=== PATIENT | male | born 1945 | race Caucasian/White ===

== ENCOUNTER → 2018-02-27 | Outpatient (CLI) | payer OTHER ==
[~2018-02-27] MED LIST: BAYER CHEWABLE81 MG PO; LEVOTHYROXIN0.025 MG PO
[2018-02-27 07:57] LABS: CREATININE 1.7 mg/dL (0.6-1.3)
== END ==
LOC: M.LAB 07:29 → M.CT 08:30
PROVIDERS: Surgery Vascular Surgery
DX: I71.4 Abdominal aortic aneurysm, without rupture (principal); J98.11 Atelectasis; K57.30 Diverticulosis of large intestine without perforation or abscess without bleeding; N26.1 Atrophy of kidney (terminal)

== ENCOUNTER → 2019-02-22 | Outpatient (CLI) | payer OTHER | LOC: M.ULTRA 09:00 | DX: I71.4 Abdominal aortic aneurysm, without rupture (principal) ==

== ENCOUNTER → 2020-02-29 | Day surgery (SDC) | payer OTHER ==
[~2020-02-29] MED LIST changes: +ASPIR 8181 M1 PO; +FERROUS SULFAT325 MG PO; +FUROSEMIDE 40 M40 MG PO; +KLOR-CON M2020 MEQ PO; -LEVOTHYROXIN0.025 MG PO; +LEVOXYL50 MCG PO; +LIPITOR 20 MG T20 M1 PO; +NORCO 10-325 T1 EACH PO; +SINGULAIR 10 MG10 MG PO; +SPIRIVA18 MCG INH; +SUPER THERAVIT1 EACH PO; +SYMBICORT160 MCG/4. INH; +XARELTO15 MG PO
[2020-02-29 09:07] LABS: HEMATOCRIT 42.2 % (42.0-52.0); HEMOGLOBIN 14.1 gm/dL (14.0-18.0); MCH 31.6 pg (26.0-34.0); MCHC 33.4 g/dL (28.0-37.0); MCV 94.8 fL (80.0-100.0); MPV 7.6 fl. (7.2-11.1); RBC 4.45 mil/uL (4.50-6.00); RDW-CV 13.9 % (10.5-14.5); WBC 8.3 thou/uL (4.0-11.0)
[2020-02-29 09:13] LABS: CALCIUM 8.6 mg/dL (8.5-10.1); CREATININE 1.5 mg/dL (0.6-1.3); POTASSIUM 3.7 mmol/L (3.5-5.1)
--- NOTE | 2020-02-29 17:24 | EKG ---
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: [facility] : 1945 Requested By: Sagar Glez Order Number: [id number] Reading MD: Lauri Kimble Measurements Intervals [place] Rate: 77 P: 21 MT: 129 QRS: 11 QRSD: 96 T: 25 QT: 393 QTc: 445 Interpretive Statements Sinus rhythm Atrial premature complex Abnormal R-wave progression, early transition Baseline wander in lead(s) V2 No previous ECG available for comparison Electronically Signed On 02-29-2020 17:24:16 CDT by Lauri Kimble [email or web address] <ELECTRONICALLY SIGNED> By: Lauri Kimble MD, [facility] 02/29/20 1724 0914 0914 Lauri Kimble MD, [facility] /EPI
--- NOTE | 2020-03-04 13:08 | PATH ---
[facility] [address] [place] [address] PATHOLOGY RPT PROCEDURE Name: PRINCESSKAREN SMITH [facility] MRaghu.#: [id number] Admission: 02/29/20 Date of : 45 Discharge: Report #: [id number] Path Case #: [id number] [facility] Accession Number: [id number] . 01 Material submitted: . PART A: colon - TRANSVERSE COLON POLYPS X2. Modifiers: transverse PART B: colon - PROXIMAL ASCENDING COLON. Modifiers: proximal, ascending . 01 Clinical history: . Rectal bleeding. . 02 Diagnosis: A. Transverse colon polyps x2: - Multiple tubular adenomas, negative for high-grade dysplasia. . B. Proximal ascending colon polyp: - Tubular adenoma, negative for high-grade dysplasia. . (MAYTE:jenny; 03/03/2020) MBHorace 03/03/2020 1740 Local . 02 Electronically signed: . Socrates Cain MD, Pathologist NPI- [id number] . 01 Gross description: . A. Received in formalin labeled "Karen Servin, transverse colon polyp x2" is a 1.2 x 0.5 x 0.1 cm aggregate of hewitt-brown soft tissue fragments. The specimen is submitted entirely in A1. . B. Received in formalin labeled "Karen Servin, proximal ascending colon polyp" is a 1.8 x 0.8 x 0.1 cm aggregate of hewitt-brown soft tissue fragments. The specimen is submitted entirely in B1. ([facility]; 03/02/2020) [facility] 03/02/2020 1030 Local . 02 Pathologist provided ICD-10: D12.3, D12.2 . 02 CPT . 959063, 467449 Specimen Comment: A courtesy copy of this report has been sent to [phone] Specimen Comment: [phone] Specimen Comment: Report sent to / DR DIETZ Performed at: [address], [place] [id number] MD Larry Mcfadden MD Phone: [phone] [place] [address] PATHOLOGY RPT PROCEDURE Name: KAREN SERVIN [id number] Admission: 02/29/20 Date of : 45 Discharge: Report #: [id number] Path Case #: [id number] Performed at: 02 [facility] [address] CHRISTOPHER Mendoza [id number] MD Socrates Cain MD Phone: [phone]
== END | disposition home or self-care (01) ==
LOC: M.SUR 08:40
PROVIDERS: ATTEND Internal Medicine Gastroenterology
DX: K62.5 Hemorrhage of anus and rectum (principal); D12.3 Benign neoplasm of transverse colon; D12.2 Benign neoplasm of ascending colon; K57.30 Diverticulosis of large intestine without perforation or abscess without bleeding; K64.8 Other hemorrhoids; E03.9 Hypothyroidism, unspecified; J44.9 Chronic obstructive pulmonary disease, unspecified; G47.30 Sleep apnea, unspecified; Z11.59 Encounter for screening for other viral diseases; Z98.890 Other specified postprocedural states; Z79.899 Other long term (current) drug therapy; Z87.891 Personal history of nicotine dependence; Z90.49 Acquired absence of other specified parts of digestive tract; Z88.8 Allergy status to other drugs, medicaments and biological substances

== ENCOUNTER 2020-08-21 22:20 | Emergency (ER) | payer OTHER ==
[~2020-08-21] VITALS: Ht 182.9 cm; Wt 122.5 kg
[2020-08-21] MEDS ORDERED: METOLAZONE 5 MG5 MG PO (22:33)
[2020-08-21] MEDS ORDERED: TORSEMIDE10 MG PO (22:33)
[2020-08-22] VITALS: BP 161/71
== END 2020-08-22 00:01 | disposition home or self-care (01) ==
LOC: M.ERS 22:20
DX: R04.0 Epistaxis (principal); J44.9 Chronic obstructive pulmonary disease, unspecified; Z90.49 Acquired absence of other specified parts of digestive tract; Z88.5 Allergy status to narcotic agent

== ENCOUNTER → 2021-03-02 | Outpatient (CLI) | payer OTHER ==
[~2021-03-02] MED LIST changes: +METOLAZONE 5 MG5 MG PO; +TORSEMIDE10 MG PO
== END ==
LOC: M.ULTRA 02-24 07:30
PROVIDERS: ATTEND Surgery Vascular Surgery
DX: I71.4 Abdominal aortic aneurysm, without rupture (principal)

== ENCOUNTER → 2021-04-09 | Outpatient (CLI) | payer OTHER ==
[2021-04-09 10:51] LABS: CALCIUM 8.6 mg/dL (8.5-10.1); CREATININE 1.8 mg/dL (0.6-1.3); POTASSIUM 4.1 mmol/L (3.5-5.1)
== END ==
LOC: M.LAB 10:00 → M.CT 11:00
PROVIDERS: ATTEND Surgery Vascular Surgery
DX: N28.1 Cyst of kidney, acquired (principal); N26.1 Atrophy of kidney (terminal); K42.9 Umbilical hernia without obstruction or gangrene; K57.30 Diverticulosis of large intestine without perforation or abscess without bleeding; J98.11 Atelectasis

== ENCOUNTER 2021-07-03 03:38 | Inpatient (IN) | payer OTHER ==
[~2021-07-03] VITALS: Ht 182.9 cm; Wt 131.4 kg
[2021-07-03] VITALS (10 sets, daily range): BP systolic 61–157; BP diastolic 36–89
[~2021-07-03 03:38] MED LIST changes: -ASPIR 8181 M1 PO; +CHILDREN'S ASPI81 MG PO
[2021-07-03 03:52] LABS: HEMATOCRIT 43.3 % (42.0-52.0); HEMOGLOBIN 14.6 gm/dL (14.0-18.0); MCH 31.8 pg (26.0-34.0); MCHC 33.7 g/dL (28.0-37.0); MCV 94.5 fL (80.0-100.0); MPV 8.1 fl. (7.2-11.1); NUCLEATED RBCS 0 /100WBC; PLATELET COUNT* 149 thou/uL (150-400); RBC 4.58 mil/uL (4.50-6.00); WBC 6.1 thou/uL (4.0-11.0)
[2021-07-03 03:57] LABS: CREATININE 1.5 mg/dL (0.6-1.3); POTASSIUM 4.4 mmol/L (3.5-5.1)
[2021-07-03 04:02] LABS: MAGNESIUM 2.5 mg/dL (1.8-2.4); TOTAL BILIRUBIN 0.5 mg/dL (<0.1-1.0); TOTAL PROTEIN 6.8 g/dL (6.4-8.2)
[2021-07-03 04:13] LABS: INFLUENZA A ANTIGEN Negative (Negative); INFLUENZA B ANTIGEN Negative (Negative)
[2021-07-03 04:40] LABS: URINE BILIRUBIN NEGATIVE (Negative); URINE BLOOD 1+ (Negative); URINE CLARITY CLEAR; URINE COLOR YELLOW; URINE GLUCOSE-RANDOM NEGATIVE (Negative); URINE KETONES 1+ (Negative); URINE LEUKOCYTES-REFLEX NEGATIVE (Negative); URINE NITRITE-REFLEX NEGATIVE (Negative); URINE PROTEIN 1+ (Negative); URINE UROBILINOGEN 0.2 E.U./dl (0.2-1.0)
[2021-07-03 05:09] LABS: AMORPHOUS URATES Few /LPF (None Seen); BACTERIA-REFLEX 1-9 Few /HPF (None Seen); CASTS None Seen /LPF (None Seen); MUCUS 0-3 Light strn/LPF (None Seen); SQUAMOUS 0-3 Few /LPF (0-3); URINE RBC 3-10 Few /HPF (0-2); URINE WBC-REFLEX 0-5 Rare /HPF (0-5)
[2021-07-03 06:03] LABS: ABSOLUTE LYMPHOCYTES 0.4 thou/uL (0.8-5.3); ABSOLUTE MONOCYTES 0.4 thou/uL (0.0-1.2); ABSOLUTE NEUTROPHILS 5.3 thou/uL (1.6-8.1); PLATELET ESTIMATE ADEQUATE
[2021-07-03 09:14] LABS: BE -3.3 mmol/L (-2 to +3); PCO2 43.1 mmHg (35.0-45.0); PO2 74.5 mmHg (75.0-100.0); pH 7.335 (7.340-7.450)
--- NOTE | 2021-07-03 10:18 | EKG ---
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 : 1945 Requested By: Rosemarie Smith Order Number: [id number] MD: Lauri Kimble Measurements Intervals [place] Rate: 80 P: TN: QRS: 33 QRSD: 81 T: 57 QT: 364 QTc: 420 Interpretive Statements sinus rhythm with short pr interval Abnormal R-wave progression, early transition Nonspecific T abnormalities, lateral leads Baseline wander in lead(s) V1 Compared to ECG 02/29/2020 09:14:19 Atrial premature complex(es) no longer present Electronically Signed On 07-03-2021 10:18:20 HEALTH SCIENCES PROGRAM COORDINATOR by Lauri Kimble [email or web address] <ELECTRONICALLY SIGNED> By: Lauri Kimble MD, FACC 07/03/21 1018 Lauri Kimble MD, [facility] /EPI
[2021-07-03 16:19] LABS: CALCIUM 7.8 mg/dL (8.5-10.1); CREATININE 1.4 mg/dL (0.6-1.3); MAGNESIUM 2.3 mg/dL (1.8-2.4); POTASSIUM 3.8 mmol/L (3.5-5.1)
--- NOTE | 2021-07-03 17:47 | 2DMMODE ---
[place] [address] 2 D/M-MODE ECHOCARDIOGRAM Name: KAREN SÁNCHEZ Room: [place] [address] ADM IN .Horace.#: [id number] Admission: 07/03/21 Attend Phys: Ivon Hernandez, Discharge: Date of : 45 Date of Service: 07/03/21 1746 Report #: [id number] THIS REPORT FOR: cc: Andrew Gonzales MD, Meng MD Blick, David R. MD [facility] ~ APPROVED REPORT Study performed: 07/03/2021 16:04:21 EXAM: Comprehensive 2D, Doppler, and color-flow Echocardiogram Patient Location: In-Patient Room #: ER Status: routine BSA: 2.77 HR: 74 bpm BP: 122/79 mmHg Rhythm: NSR Other Information Study Quality: Adequate Technically limited study due to patient coudlnt tolerate lying on side. Indications Atrial Fibrillation 2D Dimensions IVSd: 15.31 (7-11mm) LVOT Diam: 23.70 (18-24mm) LVDd: 43.99 mm PWd: 11.32 (7-11mm) Ascending Ao: 40.02 (22-36mm) LVDs: 27.64 (25-40mm) Aortic Root: 39.40 mm Aortic Valve AoV Peak Doyle.: 1.08 m/s AO Peak Gr.: 4.63 mmHg LVOT Max P.21 mmHg AO Mean Gr.: 2.34 mmHg LVOT Mean P.13 mmHg LVOT Max V: 1.14 m/s AO V2 VTI: 22.58 cm LVOT Mean V: 0.66 m/s YARELY (VTI): 4.15 cm2 LVOT V1 VTI: 21.27 cm Mitral Valve E/A Ratio: 1.01 [place] [address] 2 D/M-MODE ECHOCARDIOGRAM Name: KAREN SÁNCHEZ Room: [address] IN [facility]#: [id number] Admission: 07/03/21 Attend Phys: Ivon Hernandez, Discharge: Date of : 45 Date of Service: 07/03/21 1746 Report #: [id number] MV Decel. Time: 243.70 ms MV E Max Doyle.: 0.64 m/s MV PHT: 70.67 ms MVA (PHT): 3.11 cm2 Pulmonary Valve PV Peak Doyle.: 0.71 m/s PV Peak Gr.: 2.01 mmHg Left Ventricle The left ventricle is normal size. There is normal LV segmental wall motion. Mild concentric left ventricular hypertrophy. Left ventricular systolic function is normal. The left ventricular ejection fraction is within the normal range. LVEF is 55-60%. The left ventricular diastolic function is normal. Right Ventricle The right ventricle is normal size. The right ventricular systolic function is normal. Atria The left atrium size is normal. The right atrium size is normal. Aortic Valve The aortic valve is normal in structure. Mild aortic regurgitation. There is no aortic valvular stenosis. Mitral Valve The mitral valve is normal in structure. There is trace mitral valve regurgitation noted. No evidence of mitral valve stenosis. Tricuspid Valve The tricuspid valve is normal in structure. Unable to assess PA pressure. Trace tricuspid regurgitation. Pulmonic Valve The pulmonary valve is normal in structure. There is no pulmonic valvular regurgitation. Great Vessels Aortic root is mildly dilated. IVC is normal in size and collapses >50% with inspiration. Pericardium There is no pericardial [place] [address] 2 D/M-MODE ECHOCARDIOGRAM Name: KAREN SÁNCHEZ Room: [address] IN .R.#: [id number] Admission: 07/03/21 Attend Phys: Ivon Hernandez, Discharge: Date of : 45 Date of Service: 07/03/211745 Report #: [id number] <Conclusion> Mild concentric left ventricular hypertrophy. LVEF is 55-60%. Mild aortic regurgitation. <ELECTRONICALLY SIGNED> By: Lauri Kimble MD, [facility] 07/03/211745 45 174 Lauri Kimble MD, FACC /INF
[2021-07-03] MEDS ORDERED: MAGNESIUM400 M1 PO (23:01)
[2021-07-04] VITALS (9 sets, daily range): BP systolic 103–127; BP diastolic 47–66
[2021-07-04 04:17] LABS: ABSOLUTE LYMPHOCYTES 0.4 thou/uL (0.8-5.3); ABSOLUTE MONOCYTES 0.6 thou/uL (0.0-1.2); ABSOLUTE NEUTROPHILS 7.5 thou/uL (1.6-8.1); BASOPHILS 0.1 %; HEMATOCRIT 43.3 % (42.0-52.0); HEMOGLOBIN 14.7 gm/dL (14.0-18.0); MCH 31.3 pg (26.0-34.0); MCV 92.3 fL (80.0-100.0); MONOCYTES 6.6 %; MPV 8.5 fl. (7.2-11.1); NUCLEATED RBCS 0 /100WBC; PLATELET COUNT* 155 thou/uL (150-400); POLYS 88.3 %; RDW-CV 14.2 % (10.5-14.5); WBC 8.5 thou/uL (4.0-11.0)
[2021-07-04 04:27] LABS: ALBUMIN 2.7 g/dL (3.4-5.0); CALCIUM 8.1 mg/dL (8.5-10.1); CREATININE 1.4 mg/dL (0.6-1.3); MAGNESIUM 2.4 mg/dL (1.8-2.4); POTASSIUM 3.5 mmol/L (3.5-5.1); TOTAL BILIRUBIN 0.5 mg/dL (<0.1-1.0); TOTAL PROTEIN 6.7 g/dL (6.4-8.2)
[2021-07-04 11:33] LABS: CALCIUM 8.4 mg/dL (8.5-10.1); CREATININE 1.4 mg/dL (0.6-1.3); MAGNESIUM 2.4 mg/dL (1.8-2.4); POTASSIUM 3.6 mmol/L (3.5-5.1)
[2021-07-04 11:33] LABS: BE 3.1 mmol/L (-2 to +3); PCO2 40.7 mmHg (35.0-45.0); PO2 60.2 mmHg (75.0-100.0); pH 7.446 (7.340-7.450)
[2021-07-04 16:16] LABS: BE -0.9 mmol/L (-2 to +3); PCO2 39.6 mmHg (35.0-45.0); PO2 67.1 mmHg (75.0-100.0); pH 7.396 (7.340-7.450)
[2021-07-04 17:23] LABS: BE 1.1 mmol/L (-2 to +3); PCO2 39.8 mmHg (35.0-45.0); PO2 64.6 mmHg (75.0-100.0); pH 7.424 (7.340-7.450)
[2021-07-04 17:38] LABS: ALBUMIN 2.7 g/dL (3.4-5.0); CALCIUM 8.2 mg/dL (8.5-10.1); CREATININE 1.5 mg/dL (0.6-1.3); MAGNESIUM 2.5 mg/dL (1.8-2.4); TOTAL BILIRUBIN 0.8 mg/dL (<0.1-1.0); TOTAL PROTEIN 6.8 g/dL (6.4-8.2)
--- NOTE | 2021-07-04 20:11 | CON ---
[address] [address] CONSULTATION Name: KAREN SÁNCHEZ Room: [address] ADM IN M.R.#: [id number] Admission: 07/03/21 Attend Phys: Ivon Hernandez MD Discharge: Date of : 45 Report #: [id number] THIS REPORT FOR: cc: Andrew Gonzales MD, Meng MD Pervez, Adeel MD ~ DATE OF CONSULTATION: 07/03/2021 CONSULT HAS BEEN REQUESTED BY: Angel Mccracken MD INDICATION FOR CONSULTATION: COVID-19. HISTORY OF PRESENT ILLNESS: This is a 76-year-old gentleman who has a history of COPD as well as obstructive sleep apnea. He is on a CPAP long-term. He is also on oxygen long-term. He is reported to be fully vaccinated for COVID-19. It is not known to me which COVID-19 vaccine he received. The patient; however, did not get the booster. He has had recent known contact with a person who had COVID-19 and that is one of his family members. He also has been sick for the last several days. He has had 3 falls. There is an injury. There are minor injuries to his back as well as left buttock as well as the right leg. He reports that for the last week, he has had a fever. He has had body aches. There is an increase in shortness of breath. He has also been coughing. He is not able to describe whether he has had more sputum production. He does have some swelling of lower extremities. He does not state that there is increase in swelling of lower extremities though. He usually takes Xarelto. He states that for the last 2 days, he did not take it as he had fallen. He is not able to state exactly why he takes Xarelto. At baseline, he requires 4-6 liters of oxygen to maintain O2 saturation in the low 90s. Upon arrival, he was initially on 6 liters. Oxygen had to be eventually increased to 13 liters and then due to worsening respiratory status, he was placed on a BiPAP. At the time of my evaluation, he was on 100% FiO2 with a BiPAP of 12/[address] He had decent tidal volumes with this. He did not appear to be in any respiratory distress and had a normal blood pressure of 122/79, but he was tachycardic, heart rate was around 145-150. The patient answered to the negative for 12-point review of systems except as mentioned above; however, his ability to understand and answer questions is limited. PAST MEDICAL HISTORY: COPD, on 4 liters oxygen long-term. Obstructive sleep apnea, I had in fact read a sleep study in this hospital back in 2014. At that time, he was needing a CPAP of 7 cm of water with 2 liters of oxygen in line. I am not aware as to whether his CPAP settings have been changed since then. Also, back in 2014, he had an echo, which showed a normal left ventricular ejection fraction and right heart pressures were not elevated at that time. Fluid overload, he is on Zaroxolyn as well as torsemide long-term for these. He [address] [address] CONSULTATION Name: PRINCESSKAREN SARAH Room: [address] IN M.R.#: [id number] Admission: 07/03/21 Attend Phys: Ivon Hernandez MD Discharge: Date of : 45 Report #: [id number] is also on a fairly large dose of potassium chloride, takes 40 mEq q.i.d. as above. He is on anticoagulation, which he did not take for the last 2 days. He is not able to state why he takes anticoagulation. He does have chronic venous insufficiency. He may have had atrial fibrillation, but he does not persist at this. I do not see a rate control agent on the medication list from his home. Surgery on lumbar spine. Chronic renal insufficiency, his baseline creatinine appears to be around 1.3-1.4. SOCIAL HISTORY: There is an extensive history of smoking, discontinued in 2003. No known history of heavy alcohol use or illegal drug use. CURRENT MEDICATIONS: List in [employer] reviewed. HOME MEDICATIONS: List in [employer] reviewed. ALLERGIES: CODEINE. FAMILY HISTORY: There is a history of COVID-19 in his family and there is another family member who is sick with COVID-19. PHYSICAL EXAMINATION: GENERAL: He is alert, awake and oriented; however, he is able to provide only a limited history. VITAL SIGNS: He was tachycardic, heart rate irregular 145-150, blood pressure 122/79. He was saturating 100% with a BiPAP of 12/5 at good tidal volumes up to 600. His respiratory rate was around 22. He did have a fever of 37.7. HEENT: Head is normocephalic and atraumatic. Pupils are equal and reactive. There is no throat erythema. He has a narrow airway. There is a BiPAP mask in place. NECK: Does not show raised JVP, asymmetry, mass or lymph nodes. CHEST: Symmetrical expansion on inspection and palpation. On auscultation, breath sounds are bilaterally equal, but decreased. Expirations are prolonged. There are faint end expiratory wheezes heard. HEART: Irregular. There is significant tachycardia. ABDOMEN: Mildly distended, nontender. EXTREMITIES: Lower extremities do show 1+ edema bilaterally. SKIN: Dry and intact; however, there is evidence of chronic venous insufficiency. NEUROLOGIC: Moves all extremities bilaterally equally and spontaneously with no focal deficit identified. LABORATORY DATA: The patient's chest x-ray is reviewed and compared with his previous chest x-rays. There are bilateral pulmonary infiltrates consistent with COVID-19 compared with the x-ray performed earlier today[place] [address] CONSULTATION Name: KAREN SÁNCHEZ SARAH Room: [address] IN [facility].#: [id number] Admission: 07/03/21 Attend Phys: Ivon Hernandez MD Discharge: Date of : 45 Report #: [id number] increase in pulmonary vascular congestion. The patient's lab work, which includes a CBC which shows 4% bands in [employer] reviewed. Chemistries which show creatinine at [facility]. D-dimer is elevated to 2.06. Arterial blood gas in [facility] reviewed. COVID-19 antigen is positive. Flu is negative. ASSESSMENT/PLAN: 1. Emxvf-ie-iwsjcxo hypoxemic respiratory failure. For now, keep him on BiPAP. He notes that he is on a CPAP at home long-term and therefore needs to be kept on BiPAP for all periods of sleep. If his respiratory status improves and his heart rate is better controlled, then he could be taken off BiPAP while awake. 2. COVID-19. He also has chronic obstructive pulmonary disease exacerbation. Also, recent gamma particles shows better outcomes with a dose of total of 12 mg Decadron compared with 6 mg on the patients who are on oxygen greater than 10 liters, although this did not reach statistical significance. Based on all of this, I would for now increase his dexamethasone to 10 mg b.i.d. I would also start remdesivir. I recommended giving him Actemra as well. Unfortunately, Actemra is in short supply and we are currently out of Actemra. 3. Pulmonary infiltrates. He has 4% bands. I would broadly cover him with cefepime initially ordered at 1 gram b.i.d. as well as doxycycline. If he declines, then I will have a low threshold of considering an increase in dose of cefepime and we will, in that case, also consider adding linezolid. Nasal swab for MRSA and sputum culture are ordered. Blood cultures have already been performed. 4. Chronic obstructive pulmonary disease exacerbation. He does appear to have bronchospasm. Decadron as above. He may need more steroids. If he remains bronchospastic, we will follow and order. For now, considering significant atrial fibrillation with rapid ventricular rate, I switched him over to Xopenex for his nebulized bronchodilators. 5. Atrial fibrillation with rapid ventricular response, I would defer management to the Cardiology and primary services. Noted that he has been started on sotalol as well as a diltiazem drip. He already takes Xarelto at home, unclear as to whether this was for atrial fibrillation or related to history of thromboembolism. 6. Congestive heart failure/fluid overload. He was fluid overloaded on my exam. Also, I repeated a chest x-ray, compared with the chest x-ray performed at 4:00 a.m. this morning. There is increase in pulmonary vascular congestion. I would first like to see how his blood pressure runs. Once his heart rate is under control, some of the congestive heart failure may be secondary to rapid ventricular rate. If his blood pressure is maintained once his heart rate is under control, I will at that point consider giving him additional IV diuresis. 7. Chronic renal insufficiency. Note that his creatinine is 1.4. This appears to be his baseline. [address] [address] CONSULTATION Name: KAREN SÁNCHEZ Room: [address] ADM IN M.R.#: [id number] Admission: 07/03/21 Attend Phys: Ivon Hernandez MD Discharge: Date of : 45 Report #: [id number] 8. Obstructive sleep apnea, see discussion as above. 9. Chronic venous insufficiency/elevated D-dimer. The patient says that he did not take Xarelto for the last 2 days. Thromboembolism will be possible. Potentially venous Dopplers could be done, but regardless he needs anticoagulation. 10. Gastrointestinal prophylaxis, Protonix. 11. Clostridium difficile prophylaxis, Lactinex. 12. Hyperglycemia, insulin sliding scale. The patient is critically ill at this time. Total time spent providing critical care to this patient today exceeds 42 minutes. <ELECTRONICALLY SIGNED> By: Marco Antonio Snyder MD 07/04/212010 1704 Asharon Snyder MD /nt
[2021-07-05] VITALS (50 sets, daily range): BP systolic 88–199; BP diastolic 53–91
[2021-07-05 04:55] LABS: ABSOLUTE LYMPHOCYTES 0.7 thou/uL (0.8-5.3); ABSOLUTE MONOCYTES 1.1 thou/uL (0.0-1.2); ABSOLUTE NEUTROPHILS 13.2 thou/uL (1.6-8.1); BASOPHILS 0.2 %; HEMATOCRIT 49.1 % (42.0-52.0); HEMOGLOBIN 16.5 gm/dL (14.0-18.0); LYMPHOCYTES 4.6 %; MCH 31.1 pg (26.0-34.0); MCHC 33.6 g/dL (28.0-37.0); MCV 92.7 fL (80.0-100.0); MONOCYTES 7.3 %; MPV 8.4 fl. (7.2-11.1); NUCLEATED RBCS 0 /100WBC; POLYS 87.9 %; RBC 5.29 mil/uL (4.50-6.00); RDW-CV 13.5 % (10.5-14.5); WBC 15.1 thou/uL (4.0-11.0)
[2021-07-05 04:56] LABS: PLATELET COUNT* 242 thou/uL (150-400)
[2021-07-05 05:07] LABS: ALBUMIN 2.6 g/dL (3.4-5.0); CALCIUM 8.2 mg/dL (8.5-10.1); CREATININE 1.7 mg/dL (0.6-1.3); MAGNESIUM 2.5 mg/dL (1.8-2.4); POTASSIUM 3.6 mmol/L (3.5-5.1); PREALBUMIN 13.5 mg/dL (18.0-35.7); TOTAL BILIRUBIN 0.8 mg/dL (<0.1-1.0); TOTAL PROTEIN 6.9 g/dL (6.4-8.2)
--- NOTE | 2021-07-05 08:01 | CON ---
[address] [address] CONSULTATION Name: KAREN SÁNCHEZ Room: [address] IN M.R.#: [id number] Admission: 07/03/21 Attend Phys: Ivon Hernandez MD Discharge: Date of : 45 Report #: [id number] THIS REPORT FOR: cc: Andrew Gonzales MD, Meng MD Biggs, F. Douglas MD [facility] ~ DATE OF CONSULTATION: 07/04/2021 CARDIOLOGY FOLLOWUP VISIT HISTORY OF PRESENT ILLNESS: The patient was on BiPAP at the time I saw him and it was a little difficult to communicate with him; however, he said he was feeling better. He was less short of breath. He is not having any chest pain. He remains in atrial fibrillation; however, his heart rate is now relatively well controlled. Last night, he became hypotensive, on diltiazem. He did not get his sotalol at all last night. The Cardizem was stopped and his heart rate went up. At about 10:00 or so, they called me and I started him on digoxin because his blood pressure was only 61 systolic at that time with a heart rate in the 130s. PHYSICAL EXAMINATION: VITAL SIGNS: Today, his heart rate was 100, his blood pressure was 121/60, temperature 37.6, respirations 16, O2 sat 93% on BiPAP. HEENT: His head was atraumatic. Eyes: Clear. NECK: Supple. There is no jugular venous distention or hepatojugular reflux. Thyroid is not enlarged. There is no adenopathy. SKIN: Warm and dry. Mucous membranes are moist. LUNGS: Fairly clear to auscultation and percussion. HEART: Revealed somewhat distant first and second heart sounds. The rhythm is irregularly irregular. The rate was approximately 100. PMI is not displaced. ABDOMEN: Soft, flat, nontender, no palpable masses. EXTREMITIES: Reveal no cyanosis, clubbing or edema. NEUROLOGIC: The patient mentated normally, talked normally, moved all extremities normally. DIAGNOSTIC STUDIES: An echocardiogram yesterday revealed his left ventricular ejection fraction was normal at 55-60%. There was mild left ventricular hypertrophy, mild aortic insufficiency, trace mitral regurgitation and trace tricuspid regurgitation. IMPRESSION: 1. COVID-19 pneumonia. 2. Atrial fibrillation with a past history of atrial fibrillation. 3. History of obstructive sleep apnea. 4. [place] [address] CONSULTATION Name: KAREN SÁNCHEZ Room: [address] IN [facility]#: [id number] Admission: 07/03/21 Attend Phys: Ivon Hernandez MD Discharge: Date of : 45 Report #: [id number] 5. Status post abdominal aortic aneurysm stent. RECOMMENDATIONS: I would now start the sotalol. I will continue the Xarelto. Overall, he subjectively is improved as well as somewhat objectively in that his heart rate is slower. I would give him no more digitalis for now. Please see my orders. <ELECTRONICALLY SIGNED> By: Genaro Almeida MD, FACC 07/05/21800 4 F. Yvon Almeida MD, FACC /nt
[2021-07-05 08:27] LABS: BE 1.4 mmol/L (-2 to +3); PCO2 47.4 mmHg (35.0-45.0)
[2021-07-05 08:35] LABS: PO2 57.5 mmHg (75.0-100.0)
[2021-07-05 12:09] LABS: LIPASE 666 U/L (73-393); TRIGLYCERIDE 186 mg/dL (<150)
[2021-07-05 16:49] LABS: BE 0.2 mmol/L (-2 to +3); PCO2 44.7 mmHg (35.0-45.0); PO2 84.3 mmHg (75.0-100.0)
[2021-07-06] VITALS (54 sets, daily range): BP systolic 86–179; BP diastolic 55–175
[2021-07-06 04:15] LABS: APTT 42.5 Seconds (25.0-31.3); INR 1.4; PROTIME 14.1 Seconds (9.20-11.50)
[2021-07-06 04:25] LABS: ALBUMIN 2.4 g/dL (3.4-5.0); CALCIUM 8.2 mg/dL (8.5-10.1); MAGNESIUM 2.6 mg/dL (1.8-2.4); POTASSIUM 3.8 mmol/L (3.5-5.1); TOTAL BILIRUBIN 0.6 mg/dL (<0.1-1.0); TOTAL PROTEIN 6.6 g/dL (6.4-8.2)
[2021-07-06 04:28] LABS: PREALBUMIN 13.9 mg/dL (18.0-35.7)
[2021-07-06 04:29] LABS: PHOSPHORUS* 4.2 mg/dL (2.5-4.9)
[2021-07-06 04:34] LABS: HEMATOCRIT 52.6 % (42.0-52.0); HEMOGLOBIN 17.3 gm/dL (14.0-18.0); MCHC 32.8 g/dL (28.0-37.0); MCV 94.4 fL (80.0-100.0); MPV 9.3 fl. (7.2-11.1); NUCLEATED RBCS 0 /100WBC; PLATELET COUNT* 255 thou/uL (150-400); RBC 5.57 mil/uL (4.50-6.00); RDW-CV 13.9 % (10.5-14.5); WBC 15.3 thou/uL (4.0-11.0)
[2021-07-06 07:36] LABS: ABSOLUTE LYMPHOCYTES 2.4 thou/uL (0.8-5.3); ABSOLUTE MONOCYTES 0.2 thou/uL (0.0-1.2); ABSOLUTE NEUTROPHILS 12.7 thou/uL (1.6-8.1); PLATELET ESTIMATE ADEQUATE
[2021-07-06 07:59] LABS: BE 0.2 mmol/L (-2 to +3); PCO2 43.1 mmHg (35.0-45.0); pH 7.389 (7.340-7.450)
[2021-07-06 08:06] LABS: PO2 59.6 mmHg (75.0-100.0)
--- NOTE | 2021-07-06 08:49 | CON ---
[facility] [address] [place] [address] CONSULTATION Name: KAREN SÁNCHEZ Room: [address] ADM IN M.R.#: [id number] Admission: 07/03/21 Attend Phys: Ivon Hernandez MD Discharge: Date of : 45 Report #: [id number] THIS REPORT FOR: cc: Andrew Gonzales MD, Meng MD Blick, David R. MD FAC ~ cc: Andrew Gonzales M.D. DATE OF CONSULTATION: 07/03/2021 CARDIOLOGY CONSULTATION HISTORY OF PRESENT ILLNESS: The patient is a 76-year-old white male who I was asked to see in the Emergency Room today after he went into atrial fibrillation. The history is obtained from the patient as well as some old records. 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 Apparently four years ago, he had an episode of atrial fibrillation and converted on his own. He was placed on Xarelto. He apparently did have a heart catheterization that showed chronic total occlusion that filled by collaterals. He is not very active at this time. He notes that 2 weeks ago, he tripped and fell and hurt his back. He did not lose consciousness. Because he fell, he noticed some bruising, so stopped taking the Xarelto couple weeks ago. He states that last night, the back pain was getting worse. He was tested for COVID-19 by his primary care physician, noted to be positive. Because of the back pain, he finally called the ambulance and was brought to [place] last night. He has been coughing lately, but denied any loss of sense of smell or taste. He denies any fever. He denies any recent chest pain, palpitations. In the Emergency Room, the patient initially was in sinus rhythm, but then went into rapid atrial fibrillation. He was started on intravenous diltiazem and converted to sinus rhythm. Cardiology consultation was requested. PAST MEDICAL HISTORY: Significant for previous placement of an abdominal aortic aneurysm stent graft in [facility]. He has had cholecystectomy. He has had back surgery. He has a history of hyperlipidemia. No history of hypertension. CURRENT MEDICATIONS: Consists of Synthroid, Lipitor, Xarelto, torsemide. He takes Zaroxolyn for excessive swelling. He is on Xarelto. He takes a potassium pill. He has sleep apnea and uses CPAP. ALLERGIES: HE HAS A PREVIOUS INTOLERANCE TO CODEINE. FAMILY HISTORY: His father had congestive heart failure. SOCIAL HISTORY: . He and his live in 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 He has a history of alcohol abuse; went through AA and quit drinking 38 years ago. REVIEW OF SYSTEMS: He is overweight being 6 feet tall, 270 pounds. He has had no history of stroke, liver disease, kidney disease, cancer, chronic skin condition, psychiatric illness. PHYSICAL EXAMINATION: GENERAL: Revealed a large, elderly male, lying in bed, appeared in no acute distress. VITAL SIGNS: He had BiPAP in place. His vital signs, he had a blood pressure of 110/60, pulse is now 70. He is afebrile. HEENT: He was anicteric. Conjunctivae pink. Mucous membranes moist. NECK: Veins not appear distended. No carotid bruits. CHEST: Revealed distant breath sounds. HEART: Regular rate and rhythm, no significant murmurs. ABDOMEN: Obese. EXTREMITIES: Had no pitting edema. SKIN: Cool and dry. NEUROLOGIC: Nonfocal. LABORATORY DATA: His workup in the Emergency Room, he had an ECG that showed rapid atrial fibrillation early transition, nonspecific ST and T-wave change. The patient had a chest x-ray done in the Emergency Room today that showed normal heart size, interstitial prominence, hyperinflated lung alvarenga suggestive of COVID-19 pneumonia. He has actually had a CT scan of the head without contrast after several falls and showed atrophy, small vessel changes, evidence of previous lacunar infarction. His lab work in the Emergency Room, creatinine 1.5. His high sensitivity troponin was 27, hemoglobin 14.6. His COVID antigen stat test was positive. Urinalysis, 1+ protein, 1+ blood, no leukocytes. IMPRESSION AND RECOMMENDATIONS: 1. COVID-19 pneumonia. 2. Coronary artery disease, chronic occlusion. No recent angina. 3. Atrial fibrillation. Previous episode. At this time, I would consider starting sotalol. I would continue chronic anticoagulation with Xarelto. 4. Recent falls. 5. Previous placement of an abdominal aortic aneurysm stent graft. 6. Chronic back pain. 7. Edema. The patient is on chronic diuretics. 8. Hyperlipidemia. The patient is on a statin drug. 9. Previous tobacco abuse. 10. [place] [address] CONSULTATION Name: KAREN SÁNCHEZ Room: [address] [facility] IN M.R.#: [id number] Admission: 07/03/21 Attend Phys: Ivon Hernandez MD Discharge: Date of : 45 Report #: [id number] 11. History of alcohol abuse. 12. Morbid obesity. <ELECTRONICALLY SIGNED> By: Lauri Kimble MD, FACC 07/06/21 0849 1444 [id number] Kimble MD, FACC /nt
--- NOTE | 2021-07-06 10:37 | EKG ---
[place] [address] ELECTROCARDIOGRAM REPORT Name: EVA SÁNCHEZMILANA SMITH Room: [address] ADM IN M.R.#: [id number] Admission: 07/03/21 Attend Phys: Ivon Hernandez, Discharge: Date of : 45 Date of Service: 07/03/21 1413 Report #: [id number] THIS REPORT FOR: //name// [facility] ED Test Date: 2021-07-03 Test Time: 14:13:05 Pat Name: KAREN SÁNCHEZ Department: Room: [address] Gender: M Student Services Director: TJO : 1945 Requested By: Ivon Hernandez Order Number: [id number] Reading MD: Lauri Kimble Measurements Intervals [place] Rate: 160 P: AR: QRS: 41 QRSD: 82 T: 40 QT: 286 QTc: 467 Interpretive Statements Atrial fibrillation with rapid V-rate Ventricular premature complex ST depression, probably rate related Compared to ECG 07/03/2021 03:50:47 Ventricular premature complex(es) now present ST (T wave) deviation now present Sinus rhythm no longer present Electronically Signed On 07-06-2021 10:37:00 CON[employer]ER INSIGHTS INTERN by Lauri Kimble [email or web address] <ELECTRONICALLY SIGNED> By: Lauri Kimble MD, FACC 07/06/21 1037 141 141 Lauri Kimble MD, FAC /EPI
[2021-07-07] VITALS (38 sets, daily range): BP systolic 94–159; BP diastolic 49–76
[2021-07-07 05:22] LABS: ABSOLUTE LYMPHOCYTES 0.8 thou/uL (0.8-5.3); ABSOLUTE MONOCYTES 1.6 thou/uL (0.0-1.2); ABSOLUTE NEUTROPHILS 15.6 thou/uL (1.6-8.1); BASOPHILS 0.1 %; HEMATOCRIT 49.9 % (42.0-52.0); LYMPHOCYTES 4.2 %; MCH 30.8 pg (26.0-34.0); MCV 96.1 fL (80.0-100.0); MPV 9.2 fl. (7.2-11.1); NUCLEATED RBCS 0 /100WBC; PLATELET COUNT* 250 thou/uL (150-400); POLYS 86.7 %; RBC 5.19 mil/uL (4.50-6.00); RDW-CV 14.7 % (10.5-14.5)
[2021-07-07 05:48] LABS: ALBUMIN 2.2 g/dL (3.4-5.0); CALCIUM 8.1 mg/dL (8.5-10.1); MAGNESIUM 2.9 mg/dL (1.8-2.4); TOTAL BILIRUBIN 0.6 mg/dL (<0.1-1.0); TOTAL PROTEIN 6.4 g/dL (6.4-8.2)
[2021-07-07 05:49] LABS: CREATININE 3.7 mg/dL (0.6-1.3)
[2021-07-07 05:50] LABS: PHOSPHORUS* 4.4 mg/dL (2.5-4.9)
--- NOTE | 2021-07-07 07:45 | CON ---
[address] [address] CONSULTATION Name: KAREN SÁNCHEZ Room: [address] ADM IN M.R.#: [id number] Admission: 07/03/21 Attend Phys: Ivon Hernandez MD Discharge: Date of : 45 Report #: [id number] THIS REPORT FOR: cc: Andrew Gonzales MD, Meng MD Biggs, F. Douglas MD [facility] ~ DATE OF CONSULTATION: 07/05/2021 CARDIOLOGY HOSPITAL FOLLOWUP NOTE HISTORY OF PRESENT ILLNESS: The patient has been transferred to the ICU since I saw him yesterday on the COVID unit. He had respiratory decompensation with hypoxemia and had to be transferred to the ICU and intubated. He remains in atrial fibrillation. His rate is relatively well controlled in the 80s. He remains on sotalol and Xarelto. He is intubated, sedated and unresponsive. PHYSICAL EXAMINATION: VITAL SIGNS: Pulse was 80 and irregular, blood pressure 117/70, respirations 14 on the ventilator, O2 sat 96%, and temperature 37.2. NECK: There is no jugular venous distention. LUNGS: Breath sounds are coarse and diminished. HEART: Heart tones are somewhat distant, but audible. There is no S4, no S3, no murmurs. There are no rubs. ABDOMEN: Soft, flat, and nontender. EXTREMITIES: Reveal no cyanosis, clubbing or edema. IMPRESSION: 1. COVID-19. 2. Pneumonia. 3. Coronary artery disease. 4. Atrial fibrillation, now with a controlled ventricular response. 5. Hypotension, requiring Ty-Synephrine. 6. Status post aortic aneurysm stent. RECOMMENDATION: Continue his current therapy. His prognosis is guarded. <ELECTRONICALLY SIGNED> By: Genaro Almeida MD, [facility] 07/07/21 0745 0818 [id number]. Yvon Almeida MD, FACC /nt
[2021-07-07 07:55] LABS: BE -4.1 mmol/L (-2 to +3); PCO2 36.5 mmHg (35.0-45.0); pH 7.366 (7.340-7.450)
[2021-07-07 08:00] LABS: PO2 58.2 mmHg (75.0-100.0)
[2021-07-07 17:03] LABS: CALCIUM 7.3 mg/dL (8.5-10.1); CREATININE 4.3 mg/dL (0.6-1.3); MAGNESIUM 2.9 mg/dL (1.8-2.4); POTASSIUM 3.5 mmol/L (3.5-5.1)
[2021-07-07 17:16] LABS: BE -4.7 mmol/L (-2 to +3); PCO2 43.1 mmHg (35.0-45.0); pH 7.313 (7.340-7.450)
[2021-07-07 17:22] LABS: PO2 58.8 mmHg (75.0-100.0)
[2021-07-08] VITALS (12 sets, daily range): BP systolic 109–125; BP diastolic 50–56
[2021-07-08 05:58] LABS: ABSOLUTE BASOPHILS 0.1 thou/uL (0.0-0.2); ABSOLUTE LYMPHOCYTES 0.4 thou/uL (0.8-5.3); ABSOLUTE MONOCYTES 1.4 thou/uL (0.0-1.2); BASOPHILS 0.4 %; HEMATOCRIT 38.1 % (42.0-52.0); LYMPHOCYTES 1.9 %; MCH 30.4 pg (26.0-34.0); MCHC 32.1 g/dL (28.0-37.0); MONOCYTES 6.6 %; MPV 9.5 fl. (7.2-11.1); NUCLEATED RBCS 0 /100WBC; PLATELET COUNT* 189 thou/uL (150-400); POLYS 91.1 %; RBC 4.01 mil/uL (4.50-6.00); RDW-CV 14.5 % (10.5-14.5); WBC 21.9 thou/uL (4.0-11.0)
[2021-07-08 06:04] LABS: HEMOGLOBIN 12.2 gm/dL (14.0-18.0)
[2021-07-08 06:14] LABS: ALBUMIN 2.6 g/dL (3.4-5.0); CREATININE 4.2 mg/dL (0.6-1.3); MAGNESIUM 2.8 mg/dL (1.8-2.4); POTASSIUM 3.4 mmol/L (3.5-5.1); TOTAL BILIRUBIN 0.8 mg/dL (<0.1-1.0); TOTAL PROTEIN 5.5 g/dL (6.4-8.2)
[2021-07-08 08:14] LABS: BE -3.5 mmol/L (-2 to +3); PCO2 49.6 mmHg (35.0-45.0)
[2021-07-08 08:22] LABS: PO2 50.5 mmHg (75.0-100.0)
--- NOTE | 2021-07-08 10:41 | EKG ---
[place] [address] ELECTROCARDIOGRAM REPORT Name: KAREN SÁNCHEZ Room: [address] ADM IN M.R.#: [id number] Admission: 07/03/21 Attend Phys: Ivon Hernandez, Discharge: Date of : 45 Date of Service: 07/08/21 [facility] Report #: [id number] THIS REPORT FOR: //name// [facility] Test Date: 2021-07-08 Test Time: 10:38:31 Pat Name: KARNE SÁNCHEZ Department: Room: [address] Gender: M Crnp: GRICELDA : 1945 Requested By: Lauri Kimble Order Number: [id number] Magnus MD: Lauri Kimble Measurements Intervals [place] Rate: 60 P: 30 NH: 114 QRS: 21 QRSD: 110 T: QT: 650 QTc: 650 Interpretive Statements Sinus rhythm Borderline short NH interval Consider RVH or posterior infarct Borderline T abnormalities, inferior leads Prolonged QT interval Baseline wander in lead(s) V2 Compared to ECG 07/03/2021 14:13:05 Prolonged QT interval now present Atrial fibrillation no longer present Ventricular premature complex(es) no longer present Electronically Signed On 07-08-2021 10:41:37 PUMP SERVICER by Lauri Kimble [email or web address] <ELECTRONICALLY SIGNED> By: Lauri Kimble MD, [facility] 07/08/21 1041 1038 1038 Lauri Kimble MD, [facility] /EPI
[2021-07-08 17:10] LABS: ABSOLUTE LYMPHOCYTES 0.3 thou/uL (0.8-5.3); HEMOGLOBIN 12.3 gm/dL (14.0-18.0); RDW-CV 14.4 % (10.5-14.5); WBC 21.6 thou/uL (4.0-11.0)
[2021-07-08 17:11] LABS: ABSOLUTE MONOCYTES 1.1 thou/uL (0.0-1.2); ABSOLUTE NEUTROPHILS 20.1 thou/uL (1.6-8.1); BASOPHILS 0.1 %; HEMATOCRIT 37.2 % (42.0-52.0); LYMPHOCYTES 1.6 %; MCV 93.8 fL (80.0-100.0); MPV 9.4 fl. (7.2-11.1); NUCLEATED RBCS 0 /100WBC; PLATELET COUNT* 162 thou/uL (150-400); POLYS 93.3 %; RBC 3.96 mil/uL (4.50-6.00)
[2021-07-08 17:18] LABS: BE -4.6 mmol/L (-2 to +3); PCO2 48.6 mmHg (35.0-45.0)
[2021-07-08 17:19] LABS: CALCIUM 7.3 mg/dL (8.5-10.1); CREATININE 4.2 mg/dL (0.6-1.3); POTASSIUM 3.6 mmol/L (3.5-5.1)
[2021-07-08 17:21] LABS: PO2 57.7 mmHg (75.0-100.0)
[2021-07-09] VITALS (35 sets, daily range): BP systolic 84–152; BP diastolic 37–127
[2021-07-09 05:18] LABS: HEMATOCRIT 36.6 % (42.0-52.0); MCH 31.3 pg (26.0-34.0); MCHC 32.8 g/dL (28.0-37.0); MCV 95.5 fL (80.0-100.0); MPV 8.9 fl. (7.2-11.1); NUCLEATED RBCS 0 /100WBC; PLATELET COUNT* 136 thou/uL (150-400); RBC 3.83 mil/uL (4.50-6.00); RDW-CV 14.6 % (10.5-14.5); WBC 21.6 thou/uL (4.0-11.0)
[2021-07-09 05:52] LABS: CALCIUM 7.3 mg/dL (8.5-10.1); CREATININE 4.1 mg/dL (0.6-1.3); POTASSIUM 3.8 mmol/L (3.5-5.1)
[2021-07-09 06:26] LABS: ABSOLUTE LYMPHOCYTES 0.2 thou/uL (0.8-5.3); ABSOLUTE MONOCYTES 0.6 thou/uL (0.0-1.2); ABSOLUTE NEUTROPHILS 20.7 thou/uL (1.6-8.1)
[2021-07-09 06:29] LABS: PLATELET ESTIMATE DECREASED
[2021-07-09 06:30] LABS: ANISOCYTOSIS 1+; LARGE PLATELETS OCCASIONAL; POLYCHROMASIA 1+
[2021-07-09 11:50] LABS: BE -4.2 mmol/L (-2 to +3)
[2021-07-09 11:53] LABS: pH 7.202 (7.340-7.450)
[2021-07-09 11:55] LABS: PCO2 64.9 mmHg (35.0-45.0); PO2 50.9 mmHg (75.0-100.0)
--- NOTE | 2021-07-09 11:58 | CON ---
[address] [address] CONSULTATION Name: KAREN SÁNCHEZ Room: [address] IN M.R.#: [id number] Admission: 07/03/21 Attend Phys: Ivon Hernandez MD Discharge: Date of : 45 Report #: [id number] THIS REPORT FOR: cc: Andrew Gonzales MD, Meng MD Arakelov, Alexandr V. MD ~ DATE OF CONSULTATION: 07/08/2021 REQUESTING PHYSICIAN: Marco Antonio Snyder MD REASON FOR CONSULTATION: Acute kidney injury. HISTORY OF PRESENT ILLNESS: The patient is a 76-year-old gentleman admitted to the hospital on 07/03 with complaints of lower back pain. The patient tells us that he was exposed to COVID. He was fully vaccinated, but on admission, he was found to be hypoxic and chest discomfort. He was admitted with a diagnosis of COVID pneumonia, respiratory failure. His creatinine on admission was 1.5 and it stayed around 1.5 until July 06 when it went up to 2.0, the next day it was 3.7, yesterday evening it was 4.3, today it is 4.2, so may be it is leveling off. He has good urine output. He produced 1400 mL of urine last 24 hours. PAST MEDICAL HISTORY: Significant for hyperthyroidism and some hypertension and degenerative joint disease. He also has history of COPD and repair of abdominal aortic aneurysm. SOCIAL HISTORY: Used to smoke, quit in 2003. Alcohol abuse negative. FAMILY HISTORY: No history of renal disease. REVIEW OF SYSTEMS: Unobtainable due to him being intubated. PHYSICAL EXAMINATION: Performed from the distant, did not enter the room due to active COVID infection. Discussed findings in great detail with Dr. Snyder. ASSESSMENT: 1. Acute kidney injury due to COVID symptoms. 2. COVID pneumonia, respiratory failure. 3. History of abdominal aortic aneurysm repair. 4. Chronic obstructive pulmonary disease. PLAN: No immediate dialysis now. He is not hyperkalemic. He has got some mild respiratory acidosis, but no metabolic acidosis. He has normal anion gap. At this point, continue with current supportive treatment. If pH worsens [place] [address] CONSULTATION Name: KAREN SÁNCHEZ SARAH Room: [address] IN [facility].#: [id number] Admission: 07/03/21 Attend Phys: Ivon Hernandez MD Discharge: Date of : 45 Report #: [id number] volume status worsens, we will start him on dialysis. We will repeat labs today at 4:00 p.m. and further recommendation will depend on those labs. <ELECTRONICALLY SIGNED> By: Zach Shoemaker MD 07/09/21 1158 1019 [id number] louie Delatorre
[2021-07-09 13:34] LABS: BE -6.4 mmol/L (-2 to +3)
[2021-07-09 13:39] LABS: pH 7.202 (7.340-7.450)
[2021-07-09 13:40] LABS: PCO2 58.1 mmHg (35.0-45.0); PO2 50.2 mmHg (75.0-100.0)
[2021-07-09 15:09] LABS: ABSOLUTE LYMPHOCYTES 0.3 thou/uL (0.8-5.3); NUCLEATED RBCS 0 /100WBC
[2021-07-09 15:11] LABS: ABSOLUTE MONOCYTES 0.8 thou/uL (0.0-1.2); ABSOLUTE NEUTROPHILS 19.2 thou/uL (1.6-8.1); BASOPHILS 0.1 %; HEMATOCRIT 37.6 % (42.0-52.0); HEMOGLOBIN 12.3 gm/dL (14.0-18.0); LYMPHOCYTES 1.6 %; MCH 30.6 pg (26.0-34.0); MCHC 32.6 g/dL (28.0-37.0); MONOCYTES 3.8 %; MPV 9.7 fl. (7.2-11.1); PLATELET COUNT* 139 thou/uL (150-400); POLYS 94.5 %; RDW-CV 14.8 % (10.5-14.5); WBC 20.2 thou/uL (4.0-11.0)
[2021-07-09 15:16] LABS: APTT 33.6 Seconds (25.0-31.3); INR 1.2; PROTIME 11.9 Seconds (9.20-11.50)
[2021-07-09 15:17] LABS: ALBUMIN 2.5 g/dL (3.4-5.0); CALCIUM 7.2 mg/dL (8.5-10.1); MAGNESIUM 2.9 mg/dL (1.8-2.4); TOTAL BILIRUBIN 0.9 mg/dL (<0.1-1.0); TOTAL PROTEIN 5.4 g/dL (6.4-8.2)
[2021-07-09 17:24] LABS: BE -4.7 mmol/L (-2 to +3)
[2021-07-09 17:31] LABS: PCO2 55.3 mmHg (35.0-45.0); pH 7.242 (7.340-7.450)
[2021-07-10] VITALS (81 sets, daily range): BP systolic 62–173; BP diastolic 30–81
[2021-07-10 05:06] LABS: GLYCOHEMOGLOBIN (HGB A1C) 6.4 % (4.8-5.6)
[2021-07-10 05:16] LABS: ABSOLUTE BASOPHILS 0.1 thou/uL (0.0-0.2); ABSOLUTE LYMPHOCYTES 0.4 thou/uL (0.8-5.3); ABSOLUTE NEUTROPHILS 25.3 thou/uL (1.6-8.1); BASOPHILS 0.3 %; HEMATOCRIT 40.4 % (42.0-52.0); HEMOGLOBIN 12.8 gm/dL (14.0-18.0); LYMPHOCYTES 1.4 %; MCH 30.4 pg (26.0-34.0); MCHC 31.7 g/dL (28.0-37.0); MCV 96.1 fL (80.0-100.0); MONOCYTES 3.6 %; NUCLEATED RBCS 1 /100WBC; PLATELET COUNT* 154 thou/uL (150-400); POLYS 94.7 %; WBC 26.7 thou/uL (4.0-11.0)
[2021-07-10 05:36] LABS: ALBUMIN 2.5 g/dL (3.4-5.0); CALCIUM 7.3 mg/dL (8.5-10.1); CREATININE 3.7 mg/dL (0.6-1.3); MAGNESIUM 2.9 mg/dL (1.8-2.4); POTASSIUM 4.4 mmol/L (3.5-5.1); PREALBUMIN 13.2 mg/dL (18.0-35.7); TOTAL BILIRUBIN 0.8 mg/dL (<0.1-1.0); TOTAL PROTEIN 5.6 g/dL (6.4-8.2)
[2021-07-10 11:39] LABS: BE -7.7 mmol/L (-2 to +3)
[2021-07-10 11:46] LABS: PCO2 55.9 mmHg (35.0-45.0); pH 7.193 (7.340-7.450)
[2021-07-10 11:47] LABS: PO2 55.6 mmHg (75.0-100.0)
[2021-07-10 16:59] LABS: BE -8.1 mmol/L (-2 to +3); PO2 79.5 mmHg (75.0-100.0)
[2021-07-10 17:03] LABS: PCO2 57.9 mmHg (35.0-45.0); pH 7.179 (7.340-7.450)
[2021-07-11] VITALS (62 sets, daily range): BP systolic 82–162; BP diastolic 50–93
[2021-07-11 05:40] LABS: ABSOLUTE LYMPHOCYTES 0.4 thou/uL (0.8-5.3); ABSOLUTE MONOCYTES 1.2 thou/uL (0.0-1.2); ABSOLUTE NEUTROPHILS 26.1 thou/uL (1.6-8.1); BASOPHILS 0.2 %; EOSINOPHILS 0.1 %; HEMATOCRIT 39.9 % (42.0-52.0); HEMOGLOBIN 12.8 gm/dL (14.0-18.0); LYMPHOCYTES 1.4 %; MCH 30.5 pg (26.0-34.0); MCHC 32.1 g/dL (28.0-37.0); MCV 94.9 fL (80.0-100.0); MONOCYTES 4.4 %; MPV 9.4 fl. (7.2-11.1); NUCLEATED RBCS 1 /100WBC; PLATELET COUNT* 126 thou/uL (150-400); POLYS 93.9 %; WBC 27.7 thou/uL (4.0-11.0)
[2021-07-11 06:08] LABS: APTT 29.3 Seconds (25.0-31.3); INR 1.2; PROTIME 11.9 Seconds (9.20-11.50)
[2021-07-11 06:17] LABS: ALBUMIN 2.4 g/dL (3.4-5.0); CALCIUM 7.2 mg/dL (8.5-10.1); CREATININE 4.3 mg/dL (0.6-1.3); MAGNESIUM 2.9 mg/dL (1.8-2.4); TOTAL BILIRUBIN 0.7 mg/dL (<0.1-1.0); TOTAL PROTEIN 5.6 g/dL (6.4-8.2)
[2021-07-11 08:25] LABS: BE -8.1 mmol/L (-2 to +3); PO2 89.2 mmHg (75.0-100.0)
[2021-07-11 08:27] LABS: pH 7.185 (7.340-7.450)
[2021-07-11 08:28] LABS: PCO2 56.4 mmHg (35.0-45.0)
[2021-07-12] VITALS (75 sets, daily range): BP systolic 67–178; BP diastolic 44–77
[2021-07-12 04:16] LABS: HEMATOCRIT 33.2 % (42.0-52.0); MCH 30.7 pg (26.0-34.0); MCHC 32.2 g/dL (28.0-37.0); MCV 95.4 fL (80.0-100.0); MPV 9.6 fl. (7.2-11.1); RBC 3.48 mil/uL (4.50-6.00); WBC 28.4 thou/uL (4.0-11.0)
[2021-07-12 04:31] LABS: CALCIUM 6.8 mg/dL (8.5-10.1); CREATININE 4.6 mg/dL (0.6-1.3); POTASSIUM 5.2 mmol/L (3.5-5.1)
[2021-07-12 04:38] LABS: HEMOGLOBIN 10.7 gm/dL (14.0-18.0)
[2021-07-13] VITALS (51 sets, daily range): BP systolic 28–104; BP diastolic 24–55
[2021-07-14 07:16] LABS: HEPATITIS B SURFACE AG Negative (Negative)
== END 2021-07-13 07:31 | DRG 870 ==
LOC: M.ERS 03:38 → M.ICU 06:25 → M.TBA-ER 06:25 → M.ORTHSURG 21:50 → M.ICU 07-04 12:30
PROVIDERS: Emergency Medicine; Internal Medicine; Internal Medicine Cardiovascular Disease; Internal Medicine Critical Care Medicine; ADMIT Internal Medicine; ATTEND Internal Medicine
DX: A41.89 Other specified sepsis (principal); U07.1 COVID-19; J12.82 Pneumonia due to coronavirus disease 2019; J96.21 Acute and chronic respiratory failure with hypoxia; J93.9 Pneumothorax, unspecified; N17.9 Acute kidney failure, unspecified; R57.9 Shock, unspecified; I48.20 Chronic atrial fibrillation, unspecified; Z79.01 Long term (current) use of anticoagulants; Z66 Do not resuscitate; Z88.8 Allergy status to other drugs, medicaments and biological substances; E83.41 Hypermagnesemia; E83.39 Other disorders of phosphorus metabolism; J43.8 Other emphysema; G47.30 Sleep apnea, unspecified; I87.2 Venous insufficiency (chronic) (peripheral); I50.9 Heart failure, unspecified